=== PATIENT | female | born 1990 | race Caucasian/White ===

== ENCOUNTER 2020-08-20 15:15 | Observation (INO) | END 2020-08-20 15:45 | disposition home or self-care (01) | LOC: 1NENULAB | PROVIDERS: ADMIT Obstetrics & Gynecology; ATTEND Obstetrics & Gynecology ==

== ENCOUNTER → 2020-08-23 23:38 | Observation (INO) | END | disposition home or self-care (01) | LOC: 1NENULAB | PROVIDERS: ADMIT Student in an Organized Health Care Education/Training Program; ATTEND Student in an Organized Health Care Education/Training Program ==

== ENCOUNTER 2020-08-25 03:48 | Inpatient (IN) ==
[2020-08-25] MEDS ORDERED: Oxytocin 20 units/ LR 1000 mL 20 UNIT/1,000 ML BAG IVC SCH ×2 (04:45→17:20)
[2020-08-25] MEDS ORDERED: *HR* FentaNYL (PF) 100 MCG/2 ML VIAL IVP PRN (04:45)
[2020-08-25] MEDS ORDERED: Famotidine 20 MG/2 ML VIAL IVP PRN (04:45)
[2020-08-25] MEDS ORDERED: Metoclopramide 10 MG/2 ML VIAL IVP PRN (04:45)
[2020-08-25] MEDS ORDERED: Ringers Solution, Lactated 1,000 ML IVC SCH (05:00)
[2020-08-25 05:09] LABS: Basophils % 0.1 %; Eosinophils # 0.1 K/mcL (0.0-0.6); Eosinophils % 0.6 %; Hematocrit 36.1 % (35.3-44.9); Hemoglobin 11.5 g/dL (11.5-15.4); Immature Granulocytes % 0.4 % (0-4); Lymphocytes # 1.9 K/mcL (0.6-4.6); Lymphocytes % 18.5 %; Mean Corpuscular HGB Conc 31.9 g/dL (31.6-35.5); Mean Corpuscular Hemoglobin 27.3 pg (28.0-33.3); Mean Corpuscular Volume 85.7 fL (83.0-100.0); Mean Platelet Volume 9.8 fL (9.4-12.4); Monocytes # 0.7 K/mcL (0.0-1.3); Monocytes % 6.7 %; Neutrophils # 7.6 K/mcL (1.6-8.9); Platelet Count 200 K/mcL (140-400); Red Blood Count 4.21 M/mcL (3.82-4.97); Red Cell Distribution Width 13.6 % (11.5-14.5); Segmented Neutrophils % 73.7 %; White Blood Count 10.3 K/mcL (4.3-11.1)
[2020-08-25 05:14] LABS: Amphetamine Screen,Urine Negative ng/mL (Cutoff=1000); Barbiturate Screen,Urine Negative ng/mL (Cutoff=200); Benzodiazepines Screen,Urine Negative ng/mL (Cutoff=200); Cannabinoid Screen,Urine Negative ng/mL (Cutoff = 50); Cocaine Screen,Urine Negative ng/mL (Cutoff= 300); Opiate Screen,Urine Negative ng/mL (Cutoff=300); Phencyclidine Screen,Urine Negative ng/mL (Cutoff=25)
[2020-08-25] MEDS ORDERED: *HR* FentaNYL (PF) 100 MCG/2 ML VIAL EP ONE (07:39)
[2020-08-25] MEDS ORDERED: Ropivacaine/PF 0.2% 20 ML VIAL EP ONE (07:39)
[2020-08-25] MEDS ORDERED: EPHEDrine 50 MG/ML VIAL IVP PRN (07:39)
[2020-08-25] MEDS ORDERED: Epidural Premix (fent/bupiv) 110 ML EP SCH (07:45)
[2020-08-25] MEDS ORDERED: Ropivacaine/PF 0.2% 20 ML VIAL ONE (09:41)
[2020-08-25] MEDS ORDERED: *HR* FentaNYL (PF) 100 MCG/2 ML VIAL ONE (09:41)
[2020-08-25] MEDS ORDERED: Rho Immune Globulin 1,500 UNIT SYRINGE IM PRN (17:20)
[2020-08-25] MEDS ORDERED: *HR* HYDROcodone/Acet 5/325 mg TABLET PO PRN (17:20)
[2020-08-25] MEDS ORDERED: Lanolin 7 G OINT...G. TP PRN (17:20)
[2020-08-25] MEDS ORDERED: Benzocaine/Menthol 56 GM AEROSOL SPRAY TP PRN (17:20)
[2020-08-25] MEDS: Ibuprofen 600 MG TABLET PO PRN (20:21)
[2020-08-26] MEDS: Acetaminophen 325 MG TABLET PO PRN ×2 (02:09→09:24)
[2020-08-26] MEDS: Ibuprofen 600 MG TABLET PO PRN (06:47)
[2020-08-26 08:57] VITALS: BP 127/71
[2020-08-26] MEDS ORDERED: Prenatal Vit/FA 1 EACH TABLET PO SCH (09:00)
== END 2020-08-26 16:00 | disposition home or self-care (01) | DRG 807 ==
LOC: 1NENULAB 03:48 → 1NENUOBS 17:15
PROVIDERS: ADMIT Advanced Practice Midwife; ATTEND Advanced Practice Midwife